=== PATIENT | male | born 2000 | race Caucasian/White ===

== ENCOUNTER 2021-05-25 01:44 | Emergency (ER) | payer OTHER ==
[~2021-05-25] VITALS: Ht 180.3 cm; Wt 82.0 kg
[2021-05-25 01:57] VITALS: BP 112/69
[2021-05-25] MEDS ORDERED: AMOX1TAB16 MT (02:52)
[2021-05-25] MEDS ORDERED: TOPUD MT (03:15)
[2021-05-25] MEDS ORDERED: ACETAMINOPHEN 325MG TABLET PO ONE (03:15)
== END 2021-05-25 03:21 | disposition home or self-care (01) ==
LOC: ER 01:44
DX: H66.92 Otitis media, unspecified, left ear (principal)
CPT/HCPCS: 99283